=== PATIENT | male | born 1950 | race Caucasian/White ===

== ENCOUNTER 2020-11-08 09:40 | Observation (INO) ==
[2020-11-08] MEDS ORDERED: 0.9 % Sodium Chloride 1,000 ML IVC ONE (10:15)
[2020-11-08 10:30] LABS: Basophils % 0.4 %; Eosinophils # 0.1 K/mcL (0.0-0.6); Eosinophils % 0.9 %; Hematocrit 30.4 % (37.5-50.1); Immature Granulocytes % 0.5 % (0-4); Lymphocytes # 0.6 K/mcL (0.6-4.6); Lymphocytes % 5.5 %; Mean Corpuscular HGB Conc 30.3 g/dL (31.6-35.5); Mean Corpuscular Hemoglobin 28.2 pg (28.0-33.3); Mean Corpuscular Volume 93.3 fL (83.0-100.0); Mean Platelet Volume 9.3 fL (9.4-12.4); Monocytes # 0.8 K/mcL (0.0-1.3); Monocytes % 7.5 %; Neutrophils # 9.5 K/mcL (1.6-8.9); Platelet Count 258 K/mcL (140-400); Red Blood Count 3.26 M/mcL (4.19-5.50); Red Cell Distribution Width 14.5 % (11.5-14.5); Segmented Neutrophils % 85.2 %; White Blood Count 11.1 K/mcL (4.3-11.1)
[2020-11-08 10:31] LABS: Hemoglobin 9.2 g/dL (12.9-16.9)
[2020-11-08 10:43] LABS: INR 1.1; Prothrombin Time 12.6 Seconds (9.4-12.1)
[2020-11-08 10:45] LABS: Activated Partial Thrombo Time 31.6 Seconds (26.0-36.0)
[2020-11-08 10:48] LABS: Calcium 9.2 mg/dL (8.6-10.3)
[2020-11-08] MEDS ORDERED: Pantoprazole 80 MG in 0.9 % Sodium Chloride 50 ML IVPB ONE (11:29)
[2020-11-08] MEDS ORDERED: 0.9 % Sodium Chloride 1,000 ML IVC SCH (14:30)
[2020-11-08 15:24] LABS: Hematocrit 29.4 % (37.5-50.1); Hemoglobin 8.6 g/dL (12.9-16.9)
[2020-11-08] MEDS ORDERED: SODIUM CHLORIDE/NAHCO3/KCL/PEG 4,000 ML SOLN.RECON PO ONE (17:00)
[2020-11-08 20:12] LABS: Hematocrit 27.2 % (37.5-50.1); Hemoglobin 8.1 g/dL (12.9-16.9)
[2020-11-08] MEDS ORDERED: MYCOPHENOLATE MOFETIL 360 MG PO SCH (21:00)
[2020-11-08] MEDS ORDERED: PROGRAF 0.5 MG PO SCH (21:00)
[2020-11-08] MEDS: Mycophenolate Sodium (DR) 180 MG TABLET.DR PO SCH (21:00)
[2020-11-08] MEDS: Melatonin 3 MG TABLET PO SCH (22:30)
[2020-11-08] MEDS: Tacrolimus [Prograf] 1 MG Capsule PO SCH (22:31)
[2020-11-09 02:21] LABS: Basophils % 0.3 %; Eosinophils % 0.4 %; Hematocrit 24.5 % (37.5-50.1); Hemoglobin 7.3 g/dL (12.9-16.9); Immature Granulocytes % 0.5 % (0-4); Lymphocytes # 0.6 K/mcL (0.6-4.6); Lymphocytes % 5.9 %; Mean Corpuscular HGB Conc 29.8 g/dL (31.6-35.5); Mean Corpuscular Hemoglobin 27.9 pg (28.0-33.3); Mean Corpuscular Volume 93.5 fL (83.0-100.0); Mean Platelet Volume 9.3 fL (9.4-12.4); Monocytes # 0.6 K/mcL (0.0-1.3); Monocytes % 5.6 %; Neutrophils # 8.5 K/mcL (1.6-8.9); Platelet Count 210 K/mcL (140-400); Red Blood Count 2.62 M/mcL (4.19-5.50); Red Cell Distribution Width 14.6 % (11.5-14.5); Segmented Neutrophils % 87.3 %; White Blood Count 9.7 K/mcL (4.3-11.1)
[2020-11-09 02:39] LABS: Calcium 8.1 mg/dL (8.6-10.3); Potassium 4.5 mEq/L (3.5-5.1)
[2020-11-09] MEDS: Pantoprazole 40 MG VIAL IVP SCH ×2 (05:05→17:02)
[2020-11-09] MEDS: Cholecalciferol (D-3) 1,000 UNIT (25MCG) TABLET PO SCH (07:42)
[2020-11-09] MEDS: predniSONE 5 MG TABLET PO SCH (07:42)
[2020-11-09] MEDS: allopurinoL 100 MG TABLET PO SCH (07:42)
[2020-11-09] MEDS: Tacrolimus [Prograf] 1 MG Capsule PO SCH ×2 (07:43→22:54)
[2020-11-09] MEDS: PROGRAF 0.5 MG PO SCH (07:44)
[2020-11-09] MEDS: Mycophenolate Sodium (DR) 180 MG TABLET.DR PO SCH ×2 (07:51→20:17)
[2020-11-09] MEDS ORDERED: Ondansetron ODT 4 MG TAB.RAPDIS SL ONE (08:31)
[2020-11-09] MEDS ORDERED: NON-FORMULARY MEDICATION 1 EACH EACH (Cholecalciferol (Vitamin D3) [Vitamin D3] 125 MCG Ca PO SCH (09:00)
[2020-11-09] MEDS ORDERED: Mycophenolate Sodium (DR) 180 MG TABLET.DR PO SCH (09:00)
[2020-11-09] MEDS: carvediloL 6.25 MG TABLET PO SCH ×2 (10:16→17:02)
[2020-11-09] MEDS: Gabapentin 100 MG CAPSULE PO SCH ×2 (10:16→20:16)
[2020-11-09] MEDS: Isosorbide MONOnitrate (24 HR) 30 MG TAB.ER.24H PO SCH (10:16)
[2020-11-09] MEDS ORDERED: *HR* Propofol 500 MG/50 ML BOTTLE IVP ONE (14:40)
[2020-11-09] MEDS ORDERED: Lidocaine -MPF 2% 5 ML VIAL SQ ONE (14:40)
[2020-11-09 18:01] LABS: Hematocrit 23.7 % (37.5-50.1)
[2020-11-09] MEDS ORDERED: 0.9 % Sodium Chloride 250 ML ONE (18:40)
[2020-11-09] MEDS: Melatonin 3 MG TABLET PO SCH (20:16)
[2020-11-10 01:55] LABS: Basophils % 0.2 %; Eosinophils % 0.6 %; Hemoglobin 7.7 g/dL (12.9-16.9); Immature Granulocytes % 0.3 % (0-4); Lymphocytes # 0.5 K/mcL (0.6-4.6); Lymphocytes % 8.1 %; Mean Corpuscular HGB Conc 30.8 g/dL (31.6-35.5); Mean Corpuscular Hemoglobin 28.2 pg (28.0-33.3); Mean Corpuscular Volume 91.6 fL (83.0-100.0); Monocytes # 0.4 K/mcL (0.0-1.3); Monocytes % 6.8 %; Neutrophils # 5.2 K/mcL (1.6-8.9); Platelet Count 185 K/mcL (140-400); Red Blood Count 2.73 M/mcL (4.19-5.50); Red Cell Distribution Width 14.9 % (11.5-14.5); White Blood Count 6.2 K/mcL (4.3-11.1)
[2020-11-10 02:12] LABS: Calcium 8.1 mg/dL (8.6-10.3)
[2020-11-10] MEDS: Pantoprazole 40 MG VIAL IVP SCH (05:05)
[2020-11-10] MEDS: Mycophenolate Sodium (DR) 180 MG TABLET.DR PO SCH (08:57)
[2020-11-10] MEDS: Cholecalciferol (D-3) 1,000 UNIT (25MCG) TABLET PO SCH (08:57)
[2020-11-10] MEDS: Isosorbide MONOnitrate (24 HR) 30 MG TAB.ER.24H PO SCH (08:57)
[2020-11-10] MEDS: Gabapentin 100 MG CAPSULE PO SCH (08:57)
[2020-11-10] MEDS: allopurinoL 100 MG TABLET PO SCH (08:58)
[2020-11-10] MEDS: predniSONE 5 MG TABLET PO SCH (08:58)
[2020-11-10] MEDS: carvediloL 6.25 MG TABLET PO SCH (08:58)
[2020-11-10] MEDS ORDERED: Azithromycin 250 MG TABLET PO SCH ×2 (09:00)
[2020-11-10] MEDS ORDERED: Sulfamethoxazole/Trimeth DS 1 EACH TABLET PO SCH ×2 (09:00)
[2020-11-10] MEDS: Tacrolimus [Prograf] 1 MG Capsule PO SCH (09:10)
[2020-11-10] MEDS: PROGRAF 0.5 MG PO SCH (09:22)
[2020-11-10 10:29] VITALS: BP 119/76; PULSE 65; TEMP 98.3; O2SAT 99
[2020-11-10 11:25] LABS: Hematocrit 25.2 % (37.5-50.1); Hemoglobin 7.7 g/dL (12.9-16.9)
[2020-11-14] MEDS ORDERED: NON-FORMULARY MEDICATION 1 EACH EACH (Alendronate Sodium [Fosamax] 70 MG Tablet) PO SCH (07:40)
== END 2020-11-10 14:41 | disposition home or self-care (01) ==
LOC: EMEROOARM 09:40 → 3BNU 09:40 → SUATTDRO 13:07 → 3BNU 14:39
PROVIDERS: ADMIT Internal Medicine; ATTEND Internal Medicine